=== PATIENT | female | born 1960 | race Caucasian/White ===

== ENCOUNTER 2016-12-14 01:32 | Emergency (ER) | payer OTHER ==
[2016-12-14 01:46] VITALS: BP_SYST 135
[2016-12-14] MEDS ORDERED: LIDOCAINE 1% 10 MG/ML, 20 ML MDV INJ ONE (02:00)
[2016-12-14] MEDS ORDERED: traMADol HCL HCL 50 MG TABLET (ULTRAM) PO ONE (02:30)
[2016-12-14 02:47] VITALS: BP_SYST 130
== END 2016-12-14 02:47 | disposition home or self-care (01) ==
LOC: SED 01:32
DX: L03.012 Cellulitis of left finger (principal); R03.0 Elevated blood-pressure reading, without diagnosis of hypertension; Z90.49 Acquired absence of other specified parts of digestive tract
CPT/HCPCS: 10060; 99283; J2001